=== PATIENT | male | born 1995 | race Caucasian/White ===

== ENCOUNTER 2019-05-28 18:11 | Emergency (ER) | payer SELFPAY ==
[~2019-05-28] VITALS: Ht 182.9 cm; Wt 80.3 kg
[~2019-05-28 18:11] MED LIST: AMOX-358 PO; NAPR-243 PO; PENI500T PO; TRM50T PO
[2019-05-28 18:29] VITALS: BP 142/91
[2019-05-28] MEDS ORDERED: ALPRAZolam 0.25 MG (XANAX) TAB PO ONE (18:30)
--- NOTE | 2019-05-28 18:34 | ED Cough/URI ---
General Chief Complaint: Respiratory Problems Stated Complaint: SOA Nursing Triage Note: PT REPORTS SOA. HARD TIME TALKING, DRINKING AND EATING. PT REPORTS THIS HAPPENED 1 YEAR AGO BUT BREATHING IS WORSE THIS TIME AROUND, PT DIAGNOSED WITH DEHYDRATION LAST TIME. Sepsis Screen: No Definite Risk Source: patient Exam Limitations: no limitations History of Present Illness Date Seen by Provider: May 28, 2019 Time Seen by Provider: 18:32 Initial Comments To ER per private vehicle from home with reports of shortness of breath. He is at a hard time drinking and eating and talking. This began this morning, he had a runny nose last night. He has had productive cough. He was [place] [facility] girlfriend prior to coming here and they diagnosed him with upper respiratory infection. He denies fevers or chills. Girlfriend suspects this is anxiety related as he has been under a lot of stress lately she states. He uses marijuana but denies any other drug use. He states that he does feel anxious. He used his mother's inhaler this morning and felt like it was helpful Timing/Duration: constant, getting worse Severity/Quality: productive cough Associated Symptoms: denies symptoms, cough Allergies and Home Medications Allergies Coded Allergies: No Known Drug Allergies (Unverified , 10/09/15) Home Medications Amoxicillin/Potassium Clav 1 Each Tablet, 1 EACH PO BID Prescribed by: FELIX KANG on 10/09/151943 Patient Home Medication List Home Medication List Reviewed: Yes Review of Systems Review of Systems Constitutional: see HPI; No chills, No fever EENTM: see HPI Respiratory: see HPI, cough, dyspnea on exertion; No hemoptysis; short of breath Cardiovascular: no symptoms reported; No chest pain Genitourinary: no symptoms reported Musculoskeletal: no symptoms reported Skin: no symptoms reported Psychiatric/Neurological: No Symptoms Reported Hematologic/Lymphatic: No Symptoms Reported Past Ajlemln-Kgarto-Gywllj Hx Patient Social History Alcohol Use: Occasionally Uses Recreational Drug Use: Yes Drug of Choice: MARIJUANA Smoking Status: Current Everyday Smoker Type Used: Cigarettes Recent Foreign Travel: No Contact w/Someone Who Travel: No Recent Infectious Disease Expo: No Recent Hopitalizations: No Seasonal Allergies Seasonal Allergies: No Past Medical History Surgeries: No Respiratory: No Cardiac: No Neurological: No Reproductive Disorders: No Sexually Transmitted Disease: No Genitourinary: No Gastrointestinal: No Musculoskeletal: No Endocrine: No HEENT: No Cancer: No Psychosocial: No Integumentary: No Blood Disorders: No Physical Exam Vital Signs - First Documented 05/28/19 05/28/19 18:18 18:29 Temp 98.0 Pulse 98 Resp 16 B/P (MAP) 152/89 (110) Pulse Ox 98 O2 Delivery Room Air Capillary Refill : Less Than 3 Seconds Height: 6'0" Weight: 177lbs. oz. 80.821709py; BMI Method:Stated General Appearance: WD/WN, no apparent distress Eyes: Bilateral Eye Normal Inspection, Bilateral Eye PERRL, Bilateral Eye EOMI HEENT: PERRL/EOMI, normal ENT inspection Neck: non-tender, full range of motion Respiratory: normal breath sounds, no respiratory distress, no accessory muscle use; No decreased breath sounds, No crackles, No rales, No rhonchi, No stridor, No wheezing; other (good air movement without wheezing) Gastrointestinal: normal bowel sounds, non tender, soft Neurologic/Psychiatric: alert, normal mood/affect, oriented x 3 Skin: normal color, warm/dry Progress/Results/Core Measures Suspected Sepsis Recent Fever Within 48 Hours: No Infection Criteria Present: None New/Unexplained Altered Menta: No Sepsis Screen: No Definite Risk SIRS Temperature:98.0 Pulse: 91 Respiratory Rate: 18 Laboratory Tests 05/28/19 18:28: White Blood Count 11.5H Blood Pressure 142 /91 Mean: 108 Laboratory Tests 05/28/19 18:28: Creatinine 1.18, Platelet Count 168, Total Bilirubin 0.6 Results/Orders Lab Results Laboratory Tests Test 05/28/19 18:28 Range/Units White Blood Count 11.5 H 4.3-11.0 10^3/uL Red Blood Count 5.45 4.35-5.85 10^6/uL Hemoglobin 16.5 13.3-17.7 G/DL Hematocrit 47 40-54 % Mean Corpuscular Volume 86 80-99 FL Mean Corpuscular Hemoglobin 30 25-34 PG Mean Corpuscular Hemoglobin Concent 35 32-36 G/DL Red Cell Distribution Width 12.7 10.0-14.5 % Platelet Count 168 130-400 10^3/uL Mean Platelet Volume 11.6 H 7.4-10.4 FL Neutrophils (%) (Auto) 77 H 42-75 % Lymphocytes (%) (Auto) 12 12-44 % Monocytes (%) (Auto) 9 0-12 % Eosinophils (%) (Auto) 1 0-10 % Basophils (%) (Auto) 1 0-10 % Neutrophils # (Auto) 8.9 H 1.8-7.8 X 10^3 Lymphocytes # (Auto) 1.4 1.0-4.0 X 10^3 Monocytes # (Auto) 1.0 0.0-1.0 X 10^3 Eosinophils # (Auto) 0.1 0.0-0.3 10^3/uL Basophils # (Auto) 0.1 0.0-0.1 10^3/uL D-Dimer 0.55 H 0.00-0.49 UG/ML Sodium Level 138 135-145 MMOL/L Potassium Level 3.5 L 3.6-5.0 MMOL/L Chloride Level 105 98-107 MMOL/L Carbon Dioxide Level 23 21-32 MMOL/L Anion Gap 10 5-14 MMOL/L Blood Urea Nitrogen 8 7-18 MG/DL Creatinine 1.18 0.60-1.30 MG/DL Estimat Glomerular Filtration Rate > 60 BUN/Creatinine Ratio 7 Glucose Level 91 70-105 MG/DL Calcium Level 9.9 8.5-10.1 MG/DL Corrected Calcium 8.5-10.1 MG/DL Total Bilirubin 0.6 0.1-1.0 MG/DL Aspartate Amino Transf (AST/SGOT) 19 5-34 U/L Alanine Aminotransferase (ALT/SGPT) 16 0-55 U/L Alkaline Phosphatase 80 40-136 U/L B-Type Natriuretic Peptide < 10.0 <100.0 PG/ML Total Protein 7.6 6.4-8.2 GM/DL Albumin 4.8 H 3.2-4.5 GM/DL Thyroid Stimulating Hormone (TSH) 1.07 0.35-4.94 UIU/ML Free Thyroxine 1.15 0.70-1.48 NG/DL My Orders Orders - FELIX KANG APRN Alprazolam Tablet (Xanax Tablet) (05/28/19 18:30) Cbc With Automated Diff (05/28/19 18:30) Comprehensive Metabolic Panel (05/28/19 18:30) BNP (05/28/19 18:30) Thyroid Stimulating Hormone (05/28/19 18:30) Free T4 (Free Thyroxine) (05/28/19 18:30) Ekg Tracing (05/28/19 18:30) Fibrin Degradation Products (05/28/19 18:30) Chest 1 View, Ap/Pa Only (05/28/19 18:30) Ct Angio Chest W (05/28/19 19:18) Albuterol/Ipra Inhalation Soln (Duoneb I (05/28/19 19:30) Svn Small Volume Nebulizer (05/28/19 19:22) Albuterol/Ipra Inhalation Soln (Duoneb I (05/28/19 19:16) Iohexol Injection (Omnipaque 350 Mg/Ml 1 (05/28/19 19:30) Received Contrast (Hold Metformin- Contr (05/28/19 19:30) Ns (Ivpb) (Sodium Chloride 0.9% Ivpb Bag (05/28/19 19:30) Medications Given in ED Current Medications Medications Dose Ordered Sig/Romi Route Start Time Stop Time Status Last Admin Dose Admin Albuterol/ Ipratropium 3 ml ONCE ONCE INH 05/28/19 19:30 05/28/19 19:32 DC 05/28/19 19:25 3 ML Alprazolam 0.5 mg ONCE ONCE PO 05/28/19 18:30 05/28/19 18:31 DC 05/28/19 18:39 0.5 MG Iohexol 100 ml ONCE ONCE IV 05/28/19 19:30 05/28/19 19:43 DC 05/28/19 19:57 100 ML Sodium Chloride 100 ml ONCE ONCE IV 05/28/19 19:30 05/28/19 19:43 DC 05/28/19 19:58 100 ML Vital Signs/I&O 05/28/19 05/28/19 18:18 18:29 Temp 98.0 Pulse 98 91 Resp 16 18 B/P (MAP) 152/89 (110) 142/91 (108) Pulse Ox 98 99 O2 Delivery Room Air Capillary Refill : Less Than 3 Seconds Blood Pressure Mean: 108 Departure Communication (Admissions) 4887-feeling much better after 0.5 mg of Xanax. Still has low pitched stridorous sounds on inspiration and exhalation coming from vocal cords/upper airway but no wheezing Impression Primary Impression: Dyspnea Qualified Codes: R06.00 - Dyspnea, unspecified Additional Impression: Anxiety Disposition: HOME, SELF-CARE Condition: Stable Departure-Patient Inst. Decision time for Depature: 20:11 Referrals: NO,LOCAL PHYSICIAN (PCP/Family) Primary Care Physician Patient Instructions: Anxiety, Adult (DC) Add. Discharge Instructions: 1. Return to ER for any concerns 2. Follow-up with your doctor next week 3. All discharge instructions reviewed with patient and/or family. Voiced understanding. Scripts Hydroxyzine HCl (Hydroxyzine HCl) 25 Mg Tablet 25 MG PO TID PRN for ANXIETY, #14 TAB Prov: FELIX KANG APRN 05/28/19 FELIX KANG APRN May 28, 2019 18:34
[2019-05-28 18:40] LABS: BASOPHILS # (AUTO) 0.1 10^3/uL (0.0-0.1); BASOPHILS % (AUTO) 1 % (0-10); EOSINOPHILS # (AUTO) 0.1 10^3/uL (0.0-0.3); EOSINOPHILS % (AUTO) 1 % (0-10); HEMATOCRIT 47 % (40-54); HEMOGLOBIN 16.5 G/DL (13.3-17.7); LYMPHOCYTES # (AUTO) 1.4 X 10^3 (1.0-4.0); LYMPHOCYTES % (AUTO) 12 % (12-44); MEAN CORPUSCULAR HEMOGLOBIN 30 PG (25-34); MEAN CORPUSCULAR HGB CONC 35 G/DL (32-36); MEAN CORPUSCULAR VOLUME 86 FL (80-99); MEAN PLATELET VOLUME 11.6 FL (7.4-10.4); MONOCYTES % (AUTO) 9 % (0-12); NEUTROPHILS # (AUTO) 8.9 X 10^3 (1.8-7.8); NEUTROPHILS % (AUTO) 77 % (42-75); PLATELET COUNT 168 10^3/uL (130-400); RED CELL DISTRIBUTION WIDTH 12.7 % (10.0-14.5); WHITE BLOOD COUNT 11.5 10^3/uL (4.3-11.0)
[2019-05-28 18:54] LABS: ALANINE AMINOTRANSFERASE 16 U/L (0-55); ALBUMIN 4.8 GM/DL (3.2-4.5); ALKALINE PHOSPHATASE 80 U/L (40-136); BILIRUBIN,TOTAL 0.6 MG/DL (0.1-1.0); BUN/CREATININE RATIO 7; CALCIUM 9.9 MG/DL (8.5-10.1); CARBON DIOXIDE 23 MMOL/L (21-32); CHLORIDE 105 MMOL/L (98-107); CREATININE SERUM 1.18 MG/DL (0.60-1.30); GFR ESTIMATED > 60; GLUCOSE 91 MG/DL (70-105); POTASSIUM 3.5 MMOL/L (3.6-5.0); SODIUM 138 MMOL/L (135-145); TOTAL PROTEIN 7.6 GM/DL (6.4-8.2)
--- NOTE | 2019-05-28 19:02 | NUR ---
REPORT TO SERENA,
--- NOTE | 2019-05-28 19:12 | Diagnostic Imaging Report ---
INDICATION: Shortness of air. Time of exam 7:05 PM No prior studies are available for comparison. The heart size is normal. The pulmonary vascularity is unremarkable. The lungs are clear. No infiltrate, effusion or pneumothorax is detected. Impression: No acute cardiopulmonary process is detected. Dictated by: Dictated on workstation # [id number]
[2019-05-28 19:14] LABS: FREE T4 (FREE THYROXINE) 1.15 NG/DL (0.70-1.48)
[2019-05-28] MEDS ORDERED: RT-ALBUTEROL/IPRATROPIUM 3 ML (DUONEB) VIAL ONE (19:16)
[2019-05-28] MEDS ORDERED: IOHEXOL 350 MG/ML 100 ML (OMNIPAQUE 350) VIAL IV ONE (19:30)
[2019-05-28] MEDS ORDERED: RT-ALBUTEROL/IPRATROPIUM 3 ML (DUONEB) VIAL INH ONE (19:30)
[2019-05-28] MEDS ORDERED: HOLD METFORMIN - RECEIVED CONTRAST 20 ML VIAL IV SCH (19:30)
[2019-05-28] MEDS ORDERED: NS 100 ML (IVPB) BAG IV ONE (19:30)
--- NOTE | 2019-05-28 20:06 | Diagnostic Imaging Report ---
PROCEDURE: CT angiography of the chest with contrast. TECHNIQUE: Multiple contiguous axial images were obtained through the chest after uneventful bolus administration of intravenous contrast. 2D reconstructed CTA MIP acquisitions were also performed. Auto Exposure Controls were utilized during the CT exam to meet ALARA standards for radiation dose reduction. INDICATION: Shortness of air and sharp chest pain. The pulmonary arterial system is without thromboembolism. No definite filling defects are seen within central, lobar or segmental branches. Thoracic aorta is normal caliber. There is no dissection. No pericardial or pleural fluid is seen. No pulmonary infiltrates, nodules or masses are seen. Upper abdomen is unremarkable. IMPRESSION: No evidence of pulmonary embolism or thoracic aortic dissection. Dictated by: Dictated on workstation # [id number]
[2019-05-28] MEDS ORDERED: HYDR-700 PO (20:12)
[2019-05-28 20:22] VITALS: BP 131/95
== END 2019-05-28 20:22 | disposition home or self-care (01) ==
LOC: EDUNIT# 18:11 → ER 18:13
DX: F41.9 Anxiety disorder, unspecified (principal); R06.00 Dyspnea, unspecified; F12.10 Cannabis abuse, uncomplicated; F17.210 Nicotine dependence, cigarettes, uncomplicated
CPT/HCPCS: 36415; 71045; 71275; 80053; 83880; 84439; 84443; 85025; 85379